=== PATIENT | male | born 1955 | race Caucasian/White ===

== ENCOUNTER → 2018-03-19 | Outpatient (CLI) | payer OTHER ==
[~2018-03-19] MED LIST: CLIN300C8 PO; ENAL20TA PO; HYDR25TA6 PO; LORA-446 PO; QUET200T4 PO
== END | disposition home or self-care (01) ==
LOC: CFH 13:54
DX: R10.32 Left lower quadrant pain (principal)
CPT/HCPCS: 76870

== ENCOUNTER 2019-01-09 20:19 | Emergency (ER) | payer OTHER ==
[~2019-01-09] VITALS: Ht 167.6 cm; Wt 77.1 kg
[2019-01-09 23:30] VITALS: BP 119/68
== END 2019-01-09 23:31 | disposition home or self-care (01) ==
LOC: ED 22:18
DX: S39.012A Strain of muscle, fascia and tendon of lower back, initial encounter (principal); S16.1XXA Strain of muscle, fascia and tendon at neck level, initial encounter; R07.89 Other chest pain; I10 Essential (primary) hypertension; F17.200 Nicotine dependence, unspecified, uncomplicated; V49.49XA Driver injured in collision with other motor vehicles in traffic accident, initial encounter; Y93.89 Activity, other specified; Y92.89 Other specified places as the place of occurrence of the external cause; Y99.8 Other external cause status
CPT/HCPCS: 36415; 71046; 80048; 82040; 84484; 85025; 93005; 96360; 99284; J7030